=== PATIENT | female | born 1995 | race Caucasian/White ===

== ENCOUNTER 2024-03-22 17:03 | Emergency (ER) | payer BC ==
[2024-03-22] MEDS ORDERED: Acetaminophen 500 MG TAB ONE (17:30)
== END 2024-03-22 19:24 | disposition home or self-care (01) ==
LOC: BURERS 17:03
DX: J10.1 Influenza due to other identified influenza virus with other respiratory manifestations (principal)
CPT/HCPCS: 87081; 87428; 87430; 99283